=== PATIENT | female | born 1965 | race African-American/Black ===

== ENCOUNTER 2017-06-04 17:26 | Emergency (ER) | payer SELFPAY ==
[~2017-06-04] VITALS: Ht 170.2 cm; Wt 90.7 kg
[2017-06-04 17:49] VITALS: BP 163/94
[2017-06-04] MEDS ORDERED: NAPROXEN 500 MG TABLET PO STA (18:01)
[2017-06-04] MEDS ORDERED: TRAM-48 PO (18:11)
[2017-06-04] MEDS ORDERED: METH-37 PO (18:11)
--- NOTE | 2017-06-04 18:12 | PHYS DOC ---
Past Medical History Past Medical History: No Pertinent History Past Surgical History: No Surgical History Alcohol Use: Occasionally Drug Use: Marijuana Adult General Chief Complaint Chief Complaint: BACK PAIN - NO INJURY HPI HPI Patient is a 51 year old female presenting with moderate bilateral low back pain that began this morning. Patient denies any known injury. She states the pain is radiating to bilateral hips. Patient denies any loss of bowel/ bladder function. Denies any numbness or tingling to bilateral lower extremities. Denies any urinary symptoms. Patient states she has no PCP, she also states she has no previous medical history. Review of Systems Review of Systems Constitutional: Denies fever or chills [] GI: Denies abdominal pain, nausea, vomiting, bloody stools or diarrhea [] : Denies dysuria or hematuria [] Musculoskeletal: Low back pain Integument: Denies rash or skin lesions [] Neurologic: Denies headache, focal weakness or sensory changes [] Current Medications Current Medications Current Medications Medications (Trade) Dose Ordered Sig/Daren Start Time Stop Time Status Last Admin Dose Admin Acetaminophen/ Hydrocodone Bitart (Lortab 5/325) 2 tab 1X ONCE 06/04/17 18:45 06/04/17 18:46 Cyclobenzaprine HCl (Flexeril) 10 mg 1X ONCE 06/04/17 18:45 06/04/17 18:46 Naproxen (Naprosyn) 500 mg 1X STAT 06/04/17 18:01 06/04/17 18:19 DC Allergies Allergies Allergies Coded Allergies Type Severity Reaction Last Updated Verified No Known Drug Allergies 06/04/17 No Physical Exam Physical Exam Constitutional: Well developed, well nourished, no acute distress, non-toxic appearance. [] Abdomen: Bowel sounds normal, soft, no tenderness, no masses, no pulsatile masses. [] Skin: Warm, dry, no erythema, no rash. [] Back: No tenderness, no CVA tenderness. [] Extremities: Diffuse paraspinal muscle tenderness to bilateral lumbar spine, no midline lumbar spine tenderness, no cyanosis, no clubbing, ROM intact, no edema. [] Neurologic: Alert and oriented X 3, normal motor function, normal sensory function, no focal deficits noted. [] Psychologic: Affect normal, judgement normal, mood normal. [] Current Patient Data Vital Signs Vital Signs Date Time Temp Pulse Resp B/P (MAP) Pulse Ox O2 Delivery O2 Flow Rate FiO2 06/04/17 17:49 97.6 70 18 97 Room Air 97.6 EKG EKG [] Radiology/Procedures Radiology/Procedures [] Course & Med Decision Making Course & Med Decision Making Pertinent Labs and Imaging studies reviewed. (See chart for details) Patient is in the ED with complaints of bilateral low back pain that began today , no known injury. Pain appears musculoskeletal. Discharged with Ultram and Robaxin. Follow-up with PCP in 1-2 weeks from the list provided. She has no symptoms Cauda equina syndrome. Dragon Disclaimer Dragon Disclaimer This electronic medical record was generated, in whole or in part, using a voice recognition dictation system. Departure Departure Impression: Primary Impression: Back pain Additional Impressions: Sciatica of right side Sciatica of left side Disposition: HOME, SELF-CARE Condition: STABLE Referrals: NO PCP (PCP) follow up with a doctor from the list provided in one week Patient Instructions: Back Pain, Adult, Sciatica, [id number] Additional Instructions: You were seen for low back pain. Apply heat to your low back. Establish care with a doctor from the list provided and follow-up in the next 7 days. Avoid lifting any heavy items especially anything greater than a gallon of milk for one week. Take the prescribed medicines as ordered. Do not drive or operate machinery on any of the pain medications. Scripts Tramadol Hcl (ULTRAM) 50 Mg Tablet 1 TAB PO Q6HRS, #30 TAB Prov: GARLAND ENAMORADO APRN 06/04/17 Methocarbamol (ROBAXIN) 500 Mg Tablet 1 TAB PO TID, #30 TAB Prov: GARLAND ENAMORADO APRN 06/04/17 Problem Qualifiers Primary Impression: Back pain Back pain location: low back pain Chronicity: acute Back pain laterality: bilateral Sciatica presence: with sciatica Sciatica laterality: bilateral sciatica Qualified Codes: M54.42 - Lumbago with sciatica, left side; M54.41 - Lumbago with sciatica, right side GARLAND ENAMORADO APRN Jun 04, 2017 18:12
[2017-06-04] MEDS ORDERED: CYCLOBENZAPRINE 10 MG TABLET. PO ONE (18:45)
[2017-06-04] MEDS ORDERED: HYDROcodone/APAP 5/325MG 1 TAB TABLET PO ONE (18:45)
== END 2017-06-04 18:27 | disposition home or self-care (01) ==
LOC: ER 17:26
DX: M54.42 Lumbago with sciatica, left side (principal); M54.41 Lumbago with sciatica, right side; F12.10 Cannabis abuse, uncomplicated
CPT/HCPCS: 99284

== ENCOUNTER 2017-11-02 19:35 | Emergency (ER) | payer SELFPAY ==
[2017-11-02] MEDS: traMADol 50 MG TABLET PO ×2 (20:15)
[2017-11-02] MEDS: ACETAMINOPHEN 325 MG TABLET. PO (20:51)
== END 2017-11-02 21:00 | disposition home or self-care (01) ==
LOC: ER 19:35
DX: S89.91XA Unspecified injury of right lower leg, initial encounter (principal); F12.10 Cannabis abuse, uncomplicated; W01.198A Fall on same level from slipping, tripping and stumbling with subsequent striking against other object, initial encounter; Y93.89 Activity, other specified; Y92.89 Other specified places as the place of occurrence of the external cause; Y99.8 Other external cause status
CPT/HCPCS: 29505; 73562; 99284

== ENCOUNTER 2018-07-04 17:08 | Emergency (ER) | payer SELFPAY ==
[~2018-07-04] VITALS: Ht 167.6 cm; Wt 90.7 kg
[~2018-07-04 17:08] MED LIST: METH-37 PO; TRAM-48 PO; TRAM50TA PO
[2018-07-04 17:20] VITALS: BP 142/80
--- NOTE | 2018-07-04 17:53 | PHYS DOC ---
Past Medical History Past Medical History: No Pertinent History Past Surgical History: No Surgical History Alcohol Use: Occasionally Drug Use: Marijuana Adult General Chief Complaint Chief Complaint: LACERATION/AVULSION HPI HPI Patient is a 52 year old F who was cutting up cabbage for a cabbage stew and cut into her L hand. Her tetanus is UTD. Review of Systems Review of Systems Constitutional: Denies fever or chills Respiratory: Denies cough or shortness of breath Cardiovascular: Denies chest pain. GI: Denies abdominal pain, nausea, vomiting, bloody stools or diarrhea Musculoskeletal: Denies back pain. Reports L hand pain. Integument: Reports L hand laceration. Neurologic: Denies headache, focal weakness or sensory changes All other systems were reviewed and found to be within normal limits, except as documented in this note. Allergies Allergies Allergies Coded Allergies Type Severity Reaction Last Updated Verified No Known Drug Allergies 06/04/17 No Physical Exam Physical Exam Constitutional: Well developed, well nourished, no acute distress, non-toxic appearance. Neck: Normal range of motion, no tenderness, supple, no stridor. Cardiovascular:Heart rate regular rhythm, no murmur Lungs & Thorax: Bilateral breath sounds clear to auscultation Abdomen: Bowel sounds normal, soft, no tenderness, no masses, no pulsatile masses. Skin: 2.0 cm laceration on palmar aspect of L hand just proximal to 5th finger. Extremities: No cyanosis, no clubbing, ROM intact, no edema. Laceration to L hand. Full ROM of hand and fingers. Cap refill intact. Neurologic: Alert and oriented X 3, normal motor function, normal sensory function, no focal deficits noted. MIld tingling of finger. Psychologic: Affect normal, judgement normal, mood normal. Current Patient Data Vital Signs Vital Signs Date Time Temp Pulse Resp B/P (MAP) Pulse Ox O2 Delivery O2 Flow Rate FiO2 07/04/18 17:20 98.0 74 18 142/80 (100) 100 Room Air 98.0 EKG EKG [] Radiology/Procedures Radiology/Procedures [] Course & Med Decision Making Course & Med Decision Making Pertinent Labs and Imaging studies reviewed. (See chart for details) Absorbable sutures placed. Pt to monitor for any concerns for infection. Pt has full ROM currently. She has mild tingling of 5th finger which I would expect with location of wound. Discussed if she continues to have any sensory changes or deficits that she should f/u with her PCP or orthopedics for further evaluation. Dragon Disclaimer Dragon Disclaimer This electronic medical record was generated, in whole or in part, using a voice recognition dictation system. Staff Physician Addendum: I was working in the ER during the course of this patient's visit. I was available for consultation as needed, but I was not directly involved in the care of this patient. PROCEDURE Procedure Wound was anesthetized with 1% licodaine (3 mls) and then cleansed with betadine soap and saline. Wound was explored and there is no FB, no evidence of tendon injury. Wound edges were then approximated with 5-0 vicryl. Pt tolerated procedure well and wound was bandaged prior to discharge. Departure Departure Impression: Primary Impression: Hand laceration Disposition: 01 HOME, SELF-CARE Condition: IMPROVED Referrals: NO PCP (PCP) COLIN ISIDRO MD Patient Instructions: Absorbable Suture Repair-Brief Scripts Naproxen (NAPROSYN) 500 Mg Tablet 1 TAB PO BID, #20 TAB 2 Refills Prov: JACKELIN JONES 07/04/18 JACKELIN JONES Jul 04, 2018 17:53 JAMES ROD MD Jul 05, 2018 12:32
[2018-07-04] MEDS ORDERED: NAPR-683 PO (17:55)
== END 2018-07-04 17:59 | disposition home or self-care (01) ==
LOC: ER 17:08
DX: S61.217A Laceration without foreign body of left little finger without damage to nail, initial encounter (principal); W26.8XXA Contact with other sharp object(s), not elsewhere classified, initial encounter; Y93.G3 Activity, cooking and baking; Y92.89 Other specified places as the place of occurrence of the external cause; Y99.8 Other external cause status
CPT/HCPCS: 12001; 99282; 99283

== ENCOUNTER 2020-09-07 15:34 | Emergency (ER) | payer SELFPAY ==
[~2020-09-07] VITALS: Ht 167.6 cm; Wt 90.9 kg
[~2020-09-07 15:34] MED LIST changes: +NAPR-683 PO
[2020-09-07 15:39] VITALS: BP 138/69
--- NOTE | 2020-09-07 16:48 | RAD ---
WRIST 3V LEFT Clinical Indication: Reason: pain and swelling after a fall / Spl. Instructions: / History: Comparison: None. Findings: There is acute traumatic nondisplaced fracture of the radial styloid. There is acute traumatic nondisplaced fracture at the tip of the ulnar styloid. The carpal bones are intact. The joint spaces are maintained. There is mild dorsal soft tissue swelling of the wrist. No radiopaque foreign body. IMPRESSION: Acute traumatic nondisplaced fractures of the radial and ulnar styloids. Electronically signed by: Ej Holder MD (09/07/2020 4:45 PM) [facility]
[2020-09-07] MEDS ORDERED: HYDR-3164 PO (16:58)
--- NOTE | 2020-09-07 16:58 | PHYS DOC ---
Past Medical History Past Medical History: No Pertinent History Past Surgical History: No Surgical History Smoking Status: Current Every Day Smoker Alcohol Use: Occasionally Drug Use: Marijuana General Adult EDM: Chief Complaint: WRIST PAIN HPI: HPI: Patient is a 55 year old female who presents with tripped and fell try to catch herself with the left wrist 6 days ago. She states since then she has had left wrist pain and increased swelling. She states her only history of smoking. States she been taking Tylenol and ibuprofen for this. Rates her pain an 8 out of 10 notes sharp and aching. Review of Systems: Review of Systems: Constitutional: Denies fever or chills. [] Eyes: Denies change in visual acuity. [] HENT: Denies nasal congestion or sore throat. [] Respiratory: Denies cough or shortness of breath. [] Cardiovascular: Denies chest pain or + left wrist 3+ edema. [] GI: Denies abdominal pain, nausea, vomiting, bloody stools or diarrhea. [] : Denies dysuria. [] Musculoskeletal: Denies back pain. +Left wrist joint pain. [] Integument: Denies rash. [] Neurologic: Denies headache, focal weakness or sensory changes. [] Endocrine: Denies polyuria or polydipsia. [] Lymphatic: Denies swollen glands. [] Psychiatric: Denies depression or anxiety. [] Heart Score: Risk Factors: Risk Factors: DM, Current or recent (<one month) smoker, HTN, HLP, family history of CAD, obesity. Risk Scores: Score 0 - 3: 2.5% MACE over next 6 weeks - Discharge Home Score 4 - 6: 20.3% MACE over next 6 weeks - Admit for Clinical Observation Score 7 - 10: 72.7% MACE over next 6 weeks - Early Invasive Strategies Allergies: Allergies: Allergies Coded Allergies Type Severity Reaction Last Updated Verified No Known Drug Allergies 06/04/17 No Physical Exam: PE: Constitutional: Well developed, well nourished, no acute distress, non-toxic appearance. [] HENT: Normocephalic, atraumatic, bilateral external ears normal, oropharynx moist, no oral exudates, nose normal. [] Eyes: PERRLA, EOMI, conjunctiva normal, no discharge. [] Neck: Normal range of motion, no tenderness, supple, no stridor. [] Cardiovascular:Heart rate regular rhythm, no murmur [] Lungs & Thorax: Bilateral breath sounds clear to auscultation [] Abdomen: Bowel sounds normal, soft, no tenderness, no masses, no pulsatile masses. [] Skin: Warm, dry, no erythema, no rash. [] Back: No tenderness, no CVA tenderness. [] Extremities: Left lateral, medial, posterior, anterior tenderness, no cyanosis, no clubbing, left wrist ROM mid intact, 2-3+ edema. [] Neurologic: Alert and oriented X 3, normal motor function, normal sensory function, no focal deficits noted. [] Psychologic: Affect normal, judgement normal, mood normal. [] Current Patient Data: Vital Signs: Vital Signs Date Time Temp Pulse Resp B/P (MAP) Pulse Ox O2 Delivery O2 Flow Rate FiO2 09/07/20 15:39 97.9 80 16 138/69 (92) 100 Room Air 97.9 EKG: EKG: [] Radiology/Procedures: Radiology/Procedures: [] Impression: [facility] [address] [place] [address] IMAGING REPORT Signed PATIENT: YUKO BARRAZA ACCOUNT: [id number] : 1965 LOCATION: ER AGE: 55 SEX: F EXAM STATUS: REG ER ORD. PHYSICIAN: ROBERTA CARVALHO APRN REASON: pain and swelling after a fall PROCEDURE: WRIST 3V LEFT WRIST 3V LEFT Clinical Indication: Reason: pain and swelling after a fall / Spl. Instructions: / History: Comparison: None. Findings: There is acute traumatic nondisplaced fracture of the radial styloid. There is acute traumatic nondisplaced fracture at the tip of the ulnar styloid. The carpal bones are intact. The joint spaces are maintained. There is mild dorsal soft tissue swelling of the wrist. No radiopaque foreign body. IMPRESSION: Acute traumatic nondisplaced fractures of the radial and ulnar styloids. Electronically signed by: Ej Holder MD (09/07/2020 4:45 PM) [facility] DICTATED and SIGNED BY: EJ HOLDER MD DATE: 09/07/20 [id number] Course & Med Decision Making: Course & Med Decision Making Pertinent Labs and Imaging studies reviewed. (See chart for details) See HPI. Limited range of motion in the left wrist due to pain and swelling. Tenderness to the medial, lateral, posterior, anterior wrist. Patient can make a light fist. She can wiggle her fingers. Denies any numbness or tingling or skin color changes. There is no bruising seen. Cap refills less than 2 seco nds. Radial pulses strong and present. Wrist is 2-3+ minutes. IMPRESSION: Acute traumatic nondisplaced fractures of the radial and ulnar styloids. Patient to be placed in a sugar tong and follow-up with orthopedics. Splint assessment: Neurovascularly intact post splint replacement with good fit. Patient's extremity symptoms have stabilized well they have been evaluated in the department and are appropriate for outpatient follow-up. No evidence of compartment syndrome, neurologic injury, vascular injury, open joint, open fracture, tendon laceration, or foreign body. [] Emelyon Disclaimer: Boubacar Disclaimer: This electronic medical record was generated, in whole or in part, using a voice recognition dictation system. Departure Departure Impression: Primary Impression: Radial styloid fracture Qualified Codes: S52.516A - Nondisplaced fracture of unspecified radial styloid process, initial encounter for closed fracture Additional Impression: Fracture of styloid process of left ulna Qualified Codes: S52.615A - Nondisplaced fracture of left ulna styloid process, initial encounter for closed fracture Disposition: 01 DC HOME SELF CARE/HOMELESS Condition: STABLE Referrals: NO PCP (PCP) NUZHAT VALENTINO MD Patient Instructions: Radial Fracture, Ulnar Fracture Additional Instructions: Follow-up with orthopedic as soon as possible. Take medication as prescribed earlier and the medication will make you sleepy. Do not drive or drink alcohol with the medication. Do not take more Tylenol with this medication. Use ice and elevation to help with pain. Scripts Hydrocodone/Apap 5-325 (NORCO 5-325 TABLET) 1 Each Tablet 1 TAB PO PRN Q6HRS PRN for PAIN, #12 TAB 0 Refills Prov: ROBERTA CARVALHO APRN 09/07/20 ROBERTA CARVALHO APRN Sep 07, 2020 16:58
== END 2020-09-07 17:27 | disposition home or self-care (01) ==
LOC: ER 15:34
DX: S52.515A Nondisplaced fracture of left radial styloid process, initial encounter for closed fracture (principal); S52.615A Nondisplaced fracture of left ulna styloid process, initial encounter for closed fracture; F17.200 Nicotine dependence, unspecified, uncomplicated; W01.0XXA Fall on same level from slipping, tripping and stumbling without subsequent striking against object, initial encounter; Y93.89 Activity, other specified; Y99.8 Other external cause status; Y92.89 Other specified places as the place of occurrence of the external cause
CPT/HCPCS: 29125; 73110; 99284; A4565

== ENCOUNTER 2021-01-15 16:21 | Emergency (ER) | payer SELFPAY ==
[~2021-01-15] VITALS: Ht 167.6 cm; Wt 86.0 kg
[~2021-01-15 16:21] MED LIST changes: +HYDR-3164 PO
--- NOTE | 2021-01-15 17:49 | EKG ---
[facility] [address] [place] [address] Test Date: 2021-01-15 Test Time: 16:58:22 Pat Name: YUKO BARRAZA Department: Room: Gender: F Donkey Doctor: YENI : 1965 Requested By: ROBERT VASQUEZ Order Number: [id number] Reading MD: Measurements Intervals [place] Rate: 84 P: 43 MN: 158 QRS: 12 QRSD: 80 T: 34 QT: 362 QTc: 431 Interpretive Statements SINUS RHYTHM NORMAL ECG RI6.02 No previous ECG available for comparison
--- NOTE | 2021-01-15 17:57 | RAD ---
XR CHEST 1V Clinical History: Reason: SOA, cough, chest pressure / Spl. Instructions: / History: Technique: AP view of the chest was obtained at 01/15/2021 5:47 PM. Comparison: None. Findings: The cardiomediastinal silhouette is normal. The pulmonary vasculature is normal. The lungs and pleura l margins are clear. Impression: No evidence of an acute cardiopulmonary process. Electronically signed by: Jose Begum III, MD (01/15/2021 5:54 PM) [facility]
--- NOTE | 2021-01-15 18:44 | ED.ADGEN ---
Past Medical History Past Medical History: No Pertinent History Past Surgical History: No Surgical History Smoking Status: Current Every Day Smoker Alcohol Use: Occasionally Drug Use: Marijuana General Adult EDM: Chief Complaint: SHORTNESS OF BREATH HPI: HPI: Patient is a 55 year old AA female who presents to the emergency department with complaints of a dry cough, shortness of breath, and chest congestion since yesterday. She states she is also had some runny nose and nasal congestion. She denies any fever, sore throat, nausea, vomiting, diarrhea, body aches, or dizziness. Patient states she has felt generalized fatigue. 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 She denies any loss of taste or smell. Patient currently rates her discomfort 8 out of 10 on the pain scale she describes it as a chest tightness. She denies any alleviating or exacerbating factors. She denies any significant medical history. Review of Systems: Review of Systems: Complete ROS is negative unless otherwise noted in HPI. Allergies: Allergies: Allergies Coded Allergies Type Severity Reaction Last Updated Verified No Known Drug Allergies 06/04/17 No Physical Exam: PE: See Above Constitutional: Well developed, well nourished, no acute distress, non-toxic appearance, overweight. [] HENT: Normocephalic, atraumatic, bilateral external ears normal, nose normal. [] Eyes: PERRLA, EOMI, conjunctiva normal, no discharge. [] Neck: Normal range of motion, no stridor. [] Cardiovascular:Heart rate regular rhythm Lungs & Thorax: Respirations even and unlabored, no retractions, no respiratory distress, lungs CTA with occasional expiratory wheeze Abdomen: soft, no tenderness Skin: Warm, dry, no erythema, no rash. [] Extremities: No cyanosis, ROM intact, no edema. [] Neurologic: Alert and oriented X 3, normal motor, sensory, no focal deficits noted. [] Psychologic: Affect normal, judgement normal, mood normal. [] Current Patient Data: Vital Signs: Vital Signs Date Time Temp Pulse Resp B/P (MAP) Pulse Ox O2 Delivery O2 Flow Rate FiO2 01/15/21 16:55 98.4 87 16 159/79 (105) 97 Room Air 98.4 EKG: EK-sinus rhythm, EKG, rate 84, no STEMI, read by Dr. Jaime [] Heart Score: C/O Chest Pain: No HEART Score for Chest Pain: HEART Score for Chest Pain Response (Comments) Value History Slighlty/Non-Suspicious 0 ECG Normal 0 Age >45 - < 65 1 Risk Factors 1 or 2 Risk Factors 1 Total 2 Risk Factors: Risk Factors: DM, Current or recent (<one month) smoker, HTN, HLP, family history of CAD, obesity. Risk Scores: Score 0 - 3: 2.5% MACE over next 6 weeks - Discharge Home Score 4 - 6: 20.3% MACE over next 6 weeks - Admit for Clinical Observation Score 7 - 10: 72.7% MACE over next 6 weeks - Early Invasive Strategies Radiology/Procedures: Radiology/Procedures: PROCEDURE: PORTABLE CHEST 1V XR CHEST 1V Clinical History: Reason: SOA, cough, chest pressure / Spl. Instructions: / H istory: Technique: AP view of the chest was obtained at 01/15/2021 5:47 PM. Comparison: None. Findings: The cardiomediastinal silhouette is normal. The pulmonary vasculature is normal. The lungs and pleural margins are clear. Impression: No evidence of an acute cardiopulmonary process. [] Course & Med Decision Making: Course & Med Decision Making Pertinent Labs and Imaging studies reviewed. (See chart for details) 55-year-old female presents emergency department with complaints of shortness of breath, chest congestion, and concerns of COVID-19 infection. Chest x-ray reveals no acute findings. EKG is normal with no acute changes. Patient's vital signs are stable in the emergency department, COVID-19 test is pending. Patient was given COVID-19 quarantine and care instructions I encouraged patient to return to the ER if her symptoms worsened or fever develop that did not respond to Tylenol or ibuprofen. Patient verbalized an understanding of home care, medications, follow-up, and return to ED instructions and was in agreement with the plan of care. Dragon Disclaimer: Dragon Disclaimer: This electronic medical record was generated, in whole or in part, using a voice recognition dictation system. Departure Departure Impression: Primary Impression: Person under investigation for COVID-19 Additional Impression: Chest congestion Disposition: 01 DC HOME SELF CARE/HOMELESS Condition: STABLE Referrals: NO PCP (PCP) Patient Instructions: Upper Respiratory Infection, Adult, [id number] Additional Instructions: You have been tested for or diagnosed with COVID-19. It is an infection caused by a new type of coronavirus. COVID-19 will cause cold-like or mild flu symptoms in most. It can cause more severe symptoms like problems breathing in some. There is no treatment for COVID-19. The body will clear the infection over time. Self-care will help to ease discomfort. Steps to Take: Self-Care Rest as needed. Healthy habits may help you feel better. Steps include: Choose healthy foods including fruits and vegetables. Drink water throughout the day. Get plenty of sleep each night. If you smoke, try to quit. It may ease breathing. Avoid alcohol. Keep Others Healthy The virus can spread to others. Droplets are released every time you sneeze or cough. The droplets can get into the mouth, nose, or eyes of people near you and lead to infection. To lower the chances of spreading COVID-19 to others: Stay at home until your doctor has said it is safe to leave. If you tested positive this will mean staying isolated until both of the following are true: At least 7 days have passed since the start of illness. You are free of fever for at least 72 hours without the use of medicine. During this time: - Avoid public areas, events, or transportation. Do not return to work or school until your doctor has said it is safe to do so. - Call ahead if you need to go to a medical center. Let them know you may have COVID-19. It will help them guide you where to go. They may also ask you to wear a facemask when you come to the office. - If you call for emergency medical services, let them know you may have COVID- 19. While at home: - Try to avoid close contact with others. Stay about 6 feet away. - If possible, spend most of your time in a separate room from others. - Use a face mask if you will be in close contact with others such as sharing a room or vehicle. - Have someone wipe down common surfaces in the home. Use household contact and service clerks supervisor every day on areas like doorknobs, counters, or sinks. - Cough or sneeze into a tissue. Throw the tissue away right after use. If a tissue is not available, cough or sneeze into your elbow. - Wash your hands often. Wash them after sneezing or coughing. Use soap and water and wash for at least 20 seconds. Alcohol based hand blind cleaner can be used if soap and water is not available. - Do not prepare food for others. Avoid sharing personal items like forks, spoons, or toothbrushes. - Avoid close contact with pets while you are sick. There is no evidence of the virus passing to pets. This is a safety step until more is known about this virus. Isolation can be frustrating. Social interaction can help. Keep in touch with friends and family through phone and tech options. You can still interact with others in your home, just keep a safe distance of about 6 feet. Follow-up: Your doctors office will check in with you to see if there are any changes in your health. You may be asked to keep track of symptoms to share with them. They will also let you know when you are clear to be in public again. Problems to Look Out For: Contact your doctor if your recovery is not going as you expect. Get emergency care if you have problems such as: - Trouble breathing - Nonstop chest pain or pressure - Changes in awareness, confusion, or problems waking - Lips or face have bluish color - Worsening of symptoms If you think you have an emergency, call for emergency medical services right away. As taken from [facility] [address] [place] [address] [facility] [address] [place] [address] [facility] [address] [facility] 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
[2021-01-15 18:45] VITALS: BP 166/81
--- NOTE | 2021-01-17 09:53 | NUR ---
IP: Attempted to contact pt concerning COVID results. Number provided is not in service. Call daughter's number. She provided pt number as [phone]. Called with no answer, left a voicemail to return the call.
--- NOTE | 2021-01-18 10:18 | NUR ---
IP: Informed pt of negative COVID test. Pt verbalized understanding.
== END 2021-01-15 19:19 | disposition home or self-care (01) ==
LOC: ER 16:21
DX: R09.89 Other specified symptoms and signs involving the circulatory and respiratory systems (principal); Z20.822 Contact with and (suspected) exposure to COVID-19; R05 Cough; R06.02 Shortness of breath; F17.200 Nicotine dependence, unspecified, uncomplicated
CPT/HCPCS: 71045; 93005; 99285; C9803; U0003; U0005

== ENCOUNTER 2021-04-17 19:35 | Emergency (ER) | payer SELFPAY ==
[~2021-04-17] VITALS: Ht 167.6 cm; Wt 91.0 kg
[2021-04-17 20:58] VITALS: BP 160/86
--- NOTE | 2021-04-17 21:54 | RAD ---
EXAM: PA and Lateral Views of the Chest DATE: 04/17/2021 9:36 PM INDICATION: Reason: sob / Spl. Instructions: / History: COMPARISON: 01/15/2021 FINDINGS: The heart is not enlarged. Mediastinal and hilar contours are normal. No focal parenchymal airspace opacity. No pleural effusion or pneumothorax. IMPRESSION: 1. No radiographic evidence for acute cardiopulmonary process. Electronically signed by: Jose Ortiz MD (04/17/2021 9:51 PM) [facility]
[2021-04-17] MEDS ORDERED: PRED50TA PO (21:55)
[2021-04-17] MEDS ORDERED: VENTOLIN HFA18 GM INH (21:55)
--- NOTE | 2021-04-17 21:55 | ED.ADGEN ---
Past Medical History Past Medical History: No Pertinent History Past Surgical History: No Surgical History Smoking Status: Current Every Day Smoker Alcohol Use: Occasionally Drug Use: Marijuana General Adult EDM: Chief Complaint: SHORTNESS OF BREATH HPI: HPI: Patient is a 55 year old [f__sex] who presents with [] Review of Systems: Review of Systems: Constitutional: Denies fever or chills. [] Eyes: Denies change in visual acuity. [] HENT: Denies nasal congestion or sore throat. [] Respiratory: Denies cough or shortness of breath. [] Cardiovascular: Denies chest pain or edema. [] GI: Denies abdominal pain, nausea, vomiting, bloody stools or diarrhea. [] : Denies dysuria. [] Musculoskeletal: Denies back pain or joint pain. [] Integument: Denies rash. [] Neurologic: Denies headache, focal weakness or sensory changes. [] Endocrine: Denies polyuria or polydipsia. [] Lymphatic: Denies swollen glands. [] Psychiatric: Denies depression or anxiety. [] Allergies: Allergies: Allergies Coded Allergies Type Severity Reaction Last Updated Verified No Known Drug Allergies 06/04/17 No Physical Exam: PE: Constitutional: Well developed, well nourished, no acute distress, non-toxic appearance. [] HENT: Normocephalic, atraumatic, bilateral external ears normal, oropharynx moist, no oral exudates, nose normal. [] Eyes: PERRLA, EOMI, conjunctiva normal, no discharge. [] Neck: Normal range of motion, no tenderness, supple, no stridor. [] Cardiovascular:Heart rate regular rhythm, no murmur [] Lungs & Thorax: Bilateral breath sounds clear to auscultation [] Abdomen: Bowel sounds normal, soft, no tenderness, no masses, no pulsatile masses. [] Skin: Warm, dry, no erythema, no rash. [] Back: No tenderness, no CVA tenderness. [] Extremities: No tenderness, no cyanosis, no clubbing, ROM intact, no edema. [] Neurologic: Alert and oriented X 3, normal motor function, normal sensory function, no focal deficits noted. [] Psychologic: Affect normal, judgement normal, mood normal. [] Current Patient Data: Vital Signs: Vital Signs Date Time Temp Pulse Resp B/P (MAP) Pulse Ox O2 Delivery O2 Flow Rate FiO2 04/17/21 20:58 97.7 86 16 160/86 (109) 100 Room Air 97.7 EKG: EKG: [] Heart Score: Risk Factors: Risk Factors: DM, Current or recent (<one month) smoker, HTN, HLP, family history of CAD, obesity. Risk Scores: Score 0 - 3: 2.5% MACE over next 6 weeks - Discharge Home Score 4 - 6: 20.3% MACE over next 6 weeks - Admit for Clinical Observation Score 7 - 10: 72.7% MACE over next 6 weeks - Early Invasive Strategies Radiology/Procedures: Radiology/Procedures: [] Course & Med Decision Making: Course & Med Decision Making Pertinent Labs and Imaging studies reviewed. (See chart for details) [] Dragon Disclaimer: Dragon Disclaimer: This electronic medical record was generated, in whole or in part, using a voice recognition dictation system. Departure Departure Impression: Primary Impression: Bronchitis Disposition: HOME / SELF CARE / HOMELESS Condition: STABLE Referrals: NO PCP (PCP) Patient Instructions: Acute Bronchitis, Form - Return To Work Scripts Albuterol Sulfate (VENTOLIN HFA INHALER) 18 Gm Hfa.aer.ad 2 PUFF INH QID for FOR ASTHMA, #1 INHALER 0 Refills Prov: MANDO BURNHAM MD 04/17/21 Prednisone (PREDNISONE) 50 Mg Tablet 1 TAB PO DAILY, #5 TAB Prov: MANDO BURNHAM MD 04/17/21 MANDO BURNHAM MD Apr 17, 2021 21:55
== END 2021-04-17 22:15 | disposition home or self-care (01) ==
LOC: ER 19:35
DX: J40 Bronchitis, not specified as acute or chronic (principal); F17.200 Nicotine dependence, unspecified, uncomplicated
CPT/HCPCS: 71046; 99283

== ENCOUNTER 2021-06-17 20:29 | Emergency (ER) | payer OTHER ==
[~2021-06-17] VITALS: Ht 170.2 cm; Wt 90.9 kg
[~2021-06-17 20:29] MED LIST changes: +PRED50TA PO; +VENTOLIN HFA18 GM INH
[2021-06-17] MEDS: ACETAMINOPHEN 500 MG TABLET PO ONE ×2 (21:45→22:22)
[2021-06-17] MEDS ORDERED: ONDANSETRON PF 4 MG/2 ML VIAL. IVP ONE (21:45)
[2021-06-17] MEDS ORDERED: IV NORMAL SALINE 1000ML BAG 1,000 ML IV SCH (21:45)
[2021-06-17] MEDS ORDERED: DEXAMETHASONE SOD PHOS 20 MG/5 ML VIAL. IV ONE (21:45)
--- NOTE | 2021-06-17 21:55 | PHYS DOC ---
Past Medical History Past Medical History: No Pertinent History Past Surgical History: No Surgical History Smoking Status: Current Every Day Smoker Alcohol Use: Occasionally Drug Use: Marijuana General Adult EDM: Chief Complaint: NAUSEA/VOMITING/DIARRHEA HPI: HPI: Patient is a 55 year old female who presents with headache, body aches, shortness of air, cough, nausea x. Has not gotten vaccinated for Covid. Denies any history and denies any taking any medications. She has not taken any Tylenol or ibuprofen since yesterday. She is a smoker. Denies vomiting, diarrhea, chest pain, dizziness, syncope, vision change, numbness tingling, focal weakness, back pain. Rating her generalized pain 8 out of 10. Review of Systems: Review of Systems: Constitutional: +fever or +chills. [] Eyes: Denies change in visual acuity. [] HENT: Denies nasal congestion or sore throat. [] Respiratory: + cough or +shortness of breath. [] Cardiovascular: Denies chest pain or edema. [] GI: Denies abdominal pain, +nausea, denies vomiting, bloody stools or diarrhea. [] : Denies dysuria. [] Musculoskeletal: Denies back pain or joint pain. + Generalized body aches [] Integument: Denies rash. [] Neurologic: +headache, denies focal weakness or sensory changes. [] Endocrine: Denies polyuria or polydipsia. [] Lymphatic: Denies swollen glands. [] Psychiatric: Denies depression or anxiety. [] Heart Score: C/O Chest Pain: No HEART Score for Chest Pain: HEART Score for Chest Pain Response (Comments) Value History Slighlty/Non-Suspicious 0 ECG Normal 0 Age >45 - < 65 1 Risk Factors 1 or 2 Risk Factors 1 Troponin < Normal Limit 0 Total 2 Risk Factors: Risk Factors: DM, Current or recent (<one month) smoker, HTN, HLP, family history of CAD, obesity. Risk Scores: Score 0 - 3: 2.5% MACE over next 6 weeks - Discharge Home Score 4 - 6: 20.3% MACE over next 6 weeks - Admit for Clinical Observation Score 7 - 10: 72.7% MACE over next 6 weeks - Early Invasive Strategies Current Medications: Current Medications Medications (Trade) Dose Ordered Sig/Daren Start Time Stop Time Status Last Admin Dose Admin Acetaminophen (Tylenol) 1,000 mg 1X ONCE 06/17/21 21:45 06/17/21 21:47 DC Dexamethasone Sodium Phosphate (Decadron) 10 mg 1X ONCE 06/17/21 21:45 06/17/21 21:47 DC Ondansetron HCl (Zofran) 4 mg 1X ONCE 06/17/21 21:45 06/17/21 21:47 DC Sodium Chloride 1,000 ml @ 1,000 mls/hr Q1H 06/17/21 21:45 06/17/21 22:44 Allergies: Allergies: Allergies Coded Allergies Type Severity Reaction Last Updated Verified No Known Drug Allergies 06/04/17 No Physical Exam: PE: Constitutional: Well developed, well nourished, no acute distress, non-toxic appearance. [] HENT: Normocephalic, atraumatic, bilateral external ears normal, oropharynx moist, no oral exudates, nose normal. [] Eyes: PERRLA, EOMI, conjunctiva normal, no discharge. [] Neck: Normal range of motion, no tenderness, supple, no stridor. [] Cardiovascular:Heart rate regular rhythm, no murmur [] Lungs & Thorax: Bilateral breath sounds clear to auscultation [] Abdomen: Bowel sounds normal, soft, no tenderness, no masses, no pulsatile ma sses. [] Skin: Warm, dry, no erythema, no rash. [] Back: No tenderness, no CVA tenderness. [] Extremities: No tenderness, no cyanosis, no clubbing, ROM intact, no edema. [] Neurologic: Alert and oriented X 3, normal motor function, normal sensory function, no focal deficits noted. [] Psychologic: Affect normal, judgement normal, mood normal. [] Normal physical exam Current Patient Data: Vital Signs: Vital Signs Date Time Temp Pulse Resp B/P (MAP) Pulse Ox O2 Delivery O2 Flow Rate FiO2 06/17/21 20:59 100.9 96 176/99 (109) 97 Room Air 100.9 EKG: EK and read by Dr. Stevens as sinus rhythm and no STEMI Radiology/Procedures: Radiology/Procedures: [] Impression: [facility] [address] [place] [address] IMAGING REPORT Signed PATIENT: YUKO BARRAZA ACCOUNT: [id number] : 1965 LOCATION: ER AGE: 55 SEX: F EXAM STATUS: REG ER ORD. PHYSICIAN: ROBERTA CARVALHO APRN REASON: SOA, COUGH, FEVER PROCEDURE: PORTABLE CHEST 1V Exam: Chest one view INDICATION: Short of air, cough, fever TECHNIQUE: Frontal view of the chest Comparisons: 04/17/2021 FINDINGS: The cardiomediastinal silhouette and pulmonary vessels are within normal limits. The lung and pleural spaces are clear. IMPRESSION: No acute cardiopulmonary process. Electronically signed by: Klaus Harvey MD (06/17/2021 10:07 PM) [facility] DICTATED and SIGNED BY: KLAUS HARVEY MD DATE: 06/17/21 [id number] 0 Course & Med Decision Making: Course & Med Decision Making Pertinent Labs and Imaging studies reviewed. (See chart for details) COVID-19 CRITERIA: The patient was evaluated during the global COVID-19 andres demic, and that diagnosis was suspected/considered upon their initial presentation. Their evaluation, treatment and testing was consistent with current guidelines for patients who present with complaints or symptoms that may be related to COVID-19. See HPI. Alert and oriented x4. Ambulatory steady gait. Skin pink warm and dry. Lungs are clear to auscultation all lobes. Vital signs are within normal limits. She is febrile. She is given Tylenol, fluids and dexamethasone in the ED. Patient is positive for Covid. She is stable and in no respiratory distress. She is hemodynamically stable. [] Dragon Disclaimer: Dragon Disclaimer: This electronic medical record was generated, in whole or in part, using a voice recognition dictation system. COVID-19 Patient Risks: Age 65 or older: No Sign of co-morbidity: Yes Exp to person + for COVID: No Exp to PUI: No Travel from affected area: No Lower respiratory symptoms: Yes Fever: Yes Other: Yes (nausea) PPE Use: Full PPE with N95 mask or PAPR: Yes Departure Departure Impression: Primary Impression: COVID-19 Disposition: 01 HOME / SELF CARE / HOMELESS Condition: STABLE Referrals: NO PCP (PCP) Patient Instructions: Cough, Adult, Fever, Adult Additional Instructions: Follow-up with primary care provider if needed. Rest. Drink plenty of fluids. Take medications as prescribed and with food. If you begin having severe shortness of breath, chest pain or you cannot keep down fluids return emergency room. You have been tested for or diagnosed with COVID-19. It is an infection caused by a new type of coronavirus. COVID-19 will cause cold-like or mild flu symptoms in most. It can cause more severe symptoms like problems breathing in some. There is no treatment for COVID-19. The body will clear the infection over time. Self-care will help to ease discomfort. Steps to Take: Self-Care Rest as needed. Healthy habits may help you feel better. Steps include: Choose healthy foods including fruits and vegetables. Drink water throughout the day. Get plenty of sleep each night. If you smoke, try to quit. It may ease breathing. Avoid alcohol. Keep Others Healthy The virus can spread to others. Droplets are released every time you sneeze or cough. The droplets can get into the mouth, nose, or eyes of people near you and lead to infection. To lower the chances of spreading COVID-19 to others: Stay at home until your doctor has said it is safe to leave. If you tested positive this will mean staying isolated until both of the following are true: At least 7 days have passed since the start of illness. You are free of fever for at least 72 hours without the use of medicine. During this time: - Avoid public areas, events, or transportation. Do not return to work or school until your doctor has said it is safe to do so. - Call ahead if you need to go to a medical center. Let them know you may have COVID-19. It will help them guide you where to go. They may also ask you to wear a facemask when you come to the office. - If you call for emergency medical services, let them know you may have COVID- 19. While at home: - Try to avoid close contact with others. Stay about 6 feet away. - If possible, spend most of your time in a separate room from others. - Use a face mask if you will be in close contact with others such as sharing a room or vehicle. - Have someone wipe down common surfaces in the home. Use household tool smith every day on areas like doorknobs, counters, or sinks. - Cough or sneeze into a tissue. Throw the tissue away right after use. If a tissue is not available, cough or sneeze into your elbow. - Wash your hands often. Wash them after sneezing or coughing. Use soap and water and wash for at least 20 seconds. Alcohol based hand line cleaner can be used if soap and water is not available. - Do not prepare food for others. Avoid sharing personal items like forks, spoons, or toothbrushes. - Avoid close contact with pets while you are sick. There is no evidence of the virus passing to pets. This is a safety step until more is known about this virus. Isolation can be frustrating. Social interaction can help. Keep in touch with friends and family through phone and tech options. You can still interact with others in your home, just keep a safe distance of about 6 feet. Follow-up: Your doctors office will check in with you to see if there are any changes in your health. You may be asked to keep track of symptoms to share with them. They will also let you know when you are clear to be in public again. Problems to Look Out For: Contact your doctor if your recovery is not going as you expect. Get emergency care if you have problems such as: - Trouble breathing - Nonstop chest pain or pressure - Changes in awareness, confusion, or problems waking - Lips or face have bluish color - Worsening of symptoms If you think you have an emergency, call for emergency medical services right away. As taken from [facility] Albuterol Sulfate (PROAIR HFA INHALER) 8.5 Gm Hfa.aer.ad 1 PUFF INH PRN Q6HRS PRN for SHORTNESS OF BREATH, #1 EACH 0 Refills Prov: ROBERTA CARVALHO INDUSTRIAL DIAMOND POLISHER 06/17/21 Methylprednisolone (MEDROL) 4 Mg Tab.ds.pk 1 PKG PO UD, #1 PKG Prov: ROBERTA CARVALHO INDUSTRIAL DIAMOND POLISHER 06/17/21 Ondansetron (ONDANSETRON ODT) 4 Mg Tab.rapdis 1 TAB PO PRN Q6-8HRS, #16 TAB Prov: ROBERTA CARVALHO INDUSTRIAL DIAMOND POLISHER 06/17/21 ROBERTA CARVALHO INDUSTRIAL DIAMOND POLISHER Jun 17, 2021 21:55
--- NOTE | 2021-06-17 22:10 | RAD ---
Exam: Chest one view INDICATION: Short of air, cough, fever TECHNIQUE: Frontal view of the chest Comparisons: 04/17/2021 FINDINGS: The cardiomediastinal silhouette and pulmonary vessels are within normal limits. The lung and pleural spaces are clear. IMPRESSION: No acute cardiopulmonary process. Electronically signed by: Klaus Estevez MD (06/17/2021 10:07 PM) [facility]
[2021-06-17] MEDS ORDERED: ALBU2.5V8 INH (22:39)
[2021-06-17] MEDS ORDERED: METH4TAB2 PO (22:39)
[2021-06-17] MEDS ORDERED: ONDA4TAB12 PO (22:39)
--- NOTE | 2021-06-17 22:39 | EKG ---
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
[2021-06-17 22:40] LABS: BASO # 0.1 x10^3/uL (0.0-0.2); BASO % 1 % (0-3); EOS % 1 % (0-3); HEMATOCRIT 38.5 % (36.0-47.0); HEMOGLOBIN 13.2 g/dL (12.0-15.5); LYMPH # 1.1 x10^3/uL (1.0-4.8); LYMPH % 23 % (24-48); MEAN CORPUSCULAR HEMOGLOBIN 26 pg (25-35); MEAN CORPUSCULAR HGB CONC 34 g/dL (31-37); MEAN CORPUSCULAR VOLUME 77 fL (79-100); MONO % 20 % (0-9); NEUT # 2.7 x10^3/uL (1.8-7.7); NEUT % 55 % (31-73); PLATELET COUNT 233 x10^3/uL (140-400); RED BLOOD COUNT 5.02 x10^6/uL (3.50-5.40); RED CELL DISTRIBUTION WIDTH 15.6 % (11.5-14.5); WHITE BLOOD COUNT 4.9 x10^3/uL (4.0-11.0)
[2021-06-17 22:56] LABS: CALCIUM 8.6 mg/dL (8.5-10.1); CREATININE 1.2 mg/dL (0.6-1.0); GFR 56.2; POTASSIUM 3.9 mmol/L (3.5-5.1)
[2021-06-17 23:02] LABS: ALBUMIN 3.2 g/dL (3.4-5.0); ALBUMIN/GLOBULIN RATIO 0.8 (1.0-1.7); TOTAL BILIRUBIN 0.2 mg/dL (0.2-1.0); TOTAL PROTEIN 7.1 g/dL (6.4-8.2)
[2021-06-17 23:06] LABS: INFLUENZA A PATIENT NEGATIVE (NEGATIVE); INFLUENZA B PATIENT NEGATIVE (NEGATIVE)
[2021-06-17 23:24] VITALS: BP 130/72
[2021-06-18 00:49] LABS: % BANDS 2 % (0-9); % BASOS 1 % (0-3); % EOS 1 % (0-5); % LYMPHS 15 % (24-48); % MONOS 16 % (0-10); % SEGS 65 % (35-66); PLT ESTIMATE ADEQUATE (ADEQUATE)
== END 2021-06-18 | disposition home or self-care (01) ==
LOC: ER 20:29
DX: U07.1 COVID-19 (principal); F17.200 Nicotine dependence, unspecified, uncomplicated
CPT/HCPCS: 36415; 71045; 80053; 83880; 84484; 85007; 85025; 87426; 87804; 93005; 96361; 96374; 96375; 99285; J1100; J2405; J7030